=== PATIENT | male | born 1990 | race Caucasian/White ===

== ENCOUNTER 2023-04-14 21:34 | Inpatient (IN) | payer OTHER ==
[~2023-04-14] VITALS: Ht 172.7 cm; Wt 71.1 kg
[2023-04-14 23:16] LABS: GLUCOMETER DEV NAME(LOC) POC.BV; POC SARS-COV2 AG, FIA NEGATIVE (NEGATIVE)
[2023-04-14] MEDS ORDERED: VALA500T34 PO (23:33)
[2023-04-14] MEDS ORDERED: OLAN10TA74 PO (23:33)
[2023-04-14] MEDS ORDERED: LAMO200T10 PO (23:33)
[2023-04-14] MEDS ORDERED: BUPR-49 PO (23:33)
[2023-04-14] MEDS ORDERED: OLAN2.5T29 PO (23:33)
[2023-04-14] MEDS ORDERED: AMAN100T PO (23:33)
[2023-04-14] MEDS ORDERED: OLANZapine 5 MG RAPDIS TABLET PO PRN (23:45)
[2023-04-14] MEDS ORDERED: ZOLPIDEM TARTRATE 10 MG TABLET PO PRN (23:45)
[2023-04-15 00:34] VITALS: BP 118/59; PULSE 76; RESP 18; TEMP 97.3
[2023-04-15] MEDS ORDERED: ACETAMINOPHEN 325 MG TABLET PO PRN (06:00)
[2023-04-15] MEDS ORDERED: BACITRACIN 28 GM OINTMENT TP PRN (06:00)
[2023-04-15] MEDS ORDERED: IBUPROFEN 600 MG TABLET PO PRN (06:00)
[2023-04-15] MEDS ORDERED: LOPERAMIDE HCL 2 MG CAPSULE PO PRN (06:00)
[2023-04-15] MEDS ORDERED: MAGNESIUM HYDROXIDE SUSPENSION 30 ML UDCUP PO PRN (06:00)
[2023-04-15] MEDS ORDERED: ONDANSETRON HCL 4 MG TABLET PO PRN (06:00)
[2023-04-15] MEDS ORDERED: BENZOCAINE/MENTHOL LOZENGE PO PRN (06:00)
[2023-04-15] MEDS ORDERED: OMEPRAZOLE 20 MG CAPSULE PO PRN (06:00)
[2023-04-15] MEDS ORDERED: CloNIDine HCL 0.1 MG TABLET PO PRN (06:00)
[2023-04-15] MEDS ORDERED: MAG HYDROX/ALUMINUM HYD/SIMETH ES 30 ML SUSPENSION UDCUP PO PRN (06:00)
[2023-04-15] MEDS ORDERED: PETROLATUM,WHITE 28 GM JELLY TP PRN (06:00)
[2023-04-15] MEDS ORDERED: ALBUTEROL SULFATE HFA 90 MCG/PUFF 8 GM INHALER IH PRN (06:00)
[2023-04-15] MEDS ORDERED: DOCUSATE SODIUM 100 MG CAPSULE PO PRN (06:00)
[2023-04-15 08:13] VITALS: BP 103/57; PULSE 80; RESP 18; TEMP 98.5; O2SAT 95
[2023-04-15 08:29] LABS: BASOPHILS % (AUTO) 0.8 % (0.0-2.0); EOSINOPHILS % (AUTO) 4.4 % (1.0-6.0); HEMATOCRIT 40.4 % (41-53); HEMOGLOBIN 13.8 g/dL (13.5-17.5); LYMPHOCYTES # (AUTO) 1.7 K/uL (1.0-4.8); LYMPHOCYTES % (AUTO) 24.2 % (22.0-44.0); MEAN CORPUSCULAR HEMOGLOBIN 32.9 pg (26.0-34.0); MEAN CORPUSCULAR HGB CONC 34.2 G/dL (31.0-37.0); MEAN CORPUSCULAR VOLUME 96 fL (80-100); MONOCYTES # (AUTO) 0.6 K/uL (0.1-1.0); NEUTROPHILS # (AUTO) 4.3 K/uL (1.8-7.7); NEUTROPHILS % (AUTO) 61.6 % (40.0-70.0); PLATELET COUNT (AUTO) 268 K/uL (150-450); RED CELL DISTRIBUTION WIDTH 13.5 % (11.5-14.5)
[2023-04-15 08:44] LABS: HEMOGLOBIN A1C 5.2 % (3.8-5.6)
[2023-04-15 09:15] LABS: ALANINE AMINOTRANSFERASE 30 U/L (12-78); ALBUMIN 4.1 g/dL (3.4-5.0); ALKALINE PHOSPHATASE 59 U/L (46-116); ANION GAP 9 mmol/L (8-16); ASPARTATE AMINOTRANSFERASE 27 U/L (15-37); BILIRUBIN,TOTAL 0.4 mg/dL (0.1-1.0); CALCIUM, TOTAL 8.5 mg/dL (8.8-10.5); CARBON DIOXIDE 28 mmol/L (22-29); CHLORIDE 100 mmol/L (98-107); CHOL/HDL RATIO 2.3 (4.2-7.3); CHOLESTEROL 157 mg/dL (131-200); CREATININE 0.74 mg/dL (0.60-1.30); GLOMERULAR FILTR. RATE CALC > 60 mL/min (>60); GLUCOSE,RANDOM 119 mg/dL (70-110); HDL CHOLESTEROL 69 mg/dL (40-60); LDL CHOL (CALC.) 79 mg/dL (0-130); POTASSIUM 4.1 mmol/L (3.5-5.1); SODIUM SERUM 137 mmol/L (136-145); TOTAL PROTEIN, SERUM 6.9 g/dL (6.4-8.2); TRIGLYCERIDES 46 mg/dL (15-150); UREA NITROGEN, BLOOD 16 mg/dL (7-18)
[2023-04-15] MEDS: LORazepam 2 MG TABLET PO PRN (10:54)
[2023-04-15] MEDS: NICOTINE POLACRILEX 4 MG LOZENGE PO PRN (10:54)
[2023-04-15 13:38] VITALS: BP 103/57; PULSE 80; RESP 18; TEMP 98.5
[2023-04-15 20:07] VITALS: BP 128/70; PULSE 90; RESP 18; TEMP 97.9
[2023-04-15 20:09] VITALS: BP 128/70; PULSE 90; RESP 18; TEMP 97.9; O2SAT 98
[2023-04-16 08:35] LABS: APPEARANCE,URINE HAZY (CLEAR); BILIRUBIN,URINE NEGATIVE (NEGATIVE); COLOR,URINE YELLOW (YELLOW); GLUCOSE, URINE (UA) NEGATIVE (NEGATIVE); KETONES,URINE NEGATIVE (NEGATIVE); LEUKOCYTE ESTERASE ,URINE NEGATIVE (NEGATIVE); NITRATE,URINE NEGATIVE (NEGATIVE); OCCULT BLOOD,URINE NEGATIVE (NEGATIVE); PROTEIN,URINE TRACE mg/dL (NEGATIVE); SPECIFIC GRAVITIY, URINE 1.028 (1.003-1.030)
[2023-04-16 08:42] LABS: ALCOHOL, URINE DRUG SCREEN NEGATIVE (NEGATIVE); AMPHET/METH SCREEN,URINE NEGATIVE (NEGATIVE); BARBITURATE SCREEN, URINE NEGATIVE (NEGATIVE); BENZODIAZEPINES SCREEN,URINE NEGATIVE (NEGATIVE); CANNABINOID SCREEN,URINE POSITIVE (NEGATIVE); COCAINE SCREEN,URINE NEGATIVE (NEGATIVE); METHADONE SCREEN, URINE NEGATIVE (NEGATIVE); OPIATE SCREEN,URINE NEGATIVE (NEGATIVE); PHENCYCLIDINE SCREEN,URINE NEGATIVE (NEGATIVE)
[2023-04-16] MEDS: NICOTINE POLACRILEX 4 MG LOZENGE PO PRN ×2 (10:30→16:40)
[2023-04-16] MEDS: LORazepam 2 MG TABLET PO PRN (13:39)
[2023-04-16 13:53] VITALS: BP 119/75; PULSE 75; RESP 18; TEMP 98.4; O2SAT 98
[2023-04-16] MEDS ORDERED: FINA1TAB17 PO (15:50)
[2023-04-16] MEDS: DIVALPROEX SODIUM 500 MG DR TABLET PO SCH (16:40)
[2023-04-16] MEDS: LITHIUM CARBONATE 300 MG ER TABLET PO SCH (16:59)
[2023-04-16] MEDS ORDERED: OLANZapine 7.5 MG TABLET PO SCH (21:00)
[2023-04-17 06:47] VITALS: BP 132/89; PULSE 71; RESP 18; TEMP 97.4; O2SAT 100
[2023-04-17] MEDS: LORazepam 2 MG TABLET PO PRN ×3 (06:48→09:01)
[2023-04-17] MEDS: DIVALPROEX SODIUM 500 MG DR TABLET PO SCH ×2 (08:42→16:16)
[2023-04-17] MEDS: LITHIUM CARBONATE 300 MG ER TABLET PO SCH ×2 (08:45→16:16)
[2023-04-17] MEDS: NICOTINE POLACRILEX 4 MG LOZENGE PO PRN ×2 (08:46→14:24)
[2023-04-17 08:58] VITALS: BP 126/92; PULSE 72; RESP 17; TEMP 98; O2SAT 99
[2023-04-17] MEDS ORDERED: LITH300C3 PO (15:42)
[2023-04-17] MEDS ORDERED: DIVA-112 PO (15:42)
[2023-04-17] MEDS ORDERED: OLAN7.5T22 PO (15:43)
== END 2023-04-17 18:58 | disposition home or self-care (01) | DRG 885 ==
LOC: B3A 21:45 → B2S 04-16 21:25
PROVIDERS: ADMIT Psychiatry & Neurology Psychiatry; ATTEND Psychiatry & Neurology Psychiatry
DX: F31.9 Bipolar disorder, unspecified (principal); R45.851 Suicidal ideations; F20.9 Schizophrenia, unspecified; K59.00 Constipation, unspecified; G47.00 Insomnia, unspecified; F41.9 Anxiety disorder, unspecified; Z72.0 Tobacco use; Z20.822 Contact with and (suspected) exposure to COVID-19
CPT/HCPCS: 80053; 80061; 80307; 81003; 83036; 84439; 84443; 85025; Q9967

== ENCOUNTER 2023-04-16 20:26 | Emergency (ER) | payer OTHER ==
[~2023-04-16] VITALS: Ht 172.7 cm; Wt 70.5 kg
[~2023-04-16 20:26] MED LIST: AMAN100T PO; BUPR-49 PO; FINA1TAB17 PO; LAMO200T10 PO; OLAN10TA74 PO; OLAN2.5T29 PO; VALA500T34 PO
[2023-04-16 20:32] VITALS: TEMP 98.3
[2023-04-16 23:48] LABS: BASOPHILS % (AUTO) 1.3 % (0.0-2.0); EOSINOPHILS % (AUTO) 3.9 % (1.0-6.0); HEMATOCRIT 40.7 % (41-53); HEMOGLOBIN 13.7 g/dL (13.5-17.5); LYMPHOCYTES # (AUTO) 2.4 K/uL (1.0-4.8); LYMPHOCYTES % (AUTO) 36.1 % (22.0-44.0); MEAN CORPUSCULAR HEMOGLOBIN 32.4 pg (26.0-34.0); MEAN CORPUSCULAR HGB CONC 33.6 G/dL (31.0-37.0); MEAN CORPUSCULAR VOLUME 96 fL (80-100); MONOCYTES # (AUTO) 0.5 K/uL (0.1-1.0); MONOCYTES % (AUTO) 8.3 % (2.0-9.0); NEUTROPHILS # (AUTO) 3.4 K/uL (1.8-7.7); NEUTROPHILS % (AUTO) 50.4 % (40.0-70.0); PLATELET COUNT (AUTO) 240 K/uL (150-450); RED BLOOD CELL COUNT(AUTO) 4.22 MIL/uL (4.50-5.90); RED CELL DISTRIBUTION WIDTH 13.3 % (11.5-14.5); WHITE BLOOD COUNT (AUTO) 6.6 K/uL (4.5-11.0)
[2023-04-16 23:58] LABS: ANION GAP 7 mmol/L (8-16); CALCIUM, TOTAL 9.2 mg/dL (8.8-10.5); CARBON DIOXIDE 31 mmol/L (22-29); CHLORIDE 103 mmol/L (98-107); CREATININE 0.72 mg/dL (0.60-1.30); GLOMERULAR FILTR. RATE CALC > 60 mL/min (>60); GLUCOSE,RANDOM 95 mg/dL (70-110); POTASSIUM 4.5 mmol/L (3.5-5.1); SODIUM SERUM 141 mmol/L (136-145); UREA NITROGEN, BLOOD 12 mg/dL (7-18)
[2023-04-17] VITALS: BP 134/74; PULSE 71; RESP 17
[2023-04-17 00:05] LABS: ALANINE AMINOTRANSFERASE 91 U/L (12-78); ALKALINE PHOSPHATASE 55 U/L (46-116); ASPARTATE AMINOTRANSFERASE 74 U/L (15-37); BILIRUBIN,TOTAL 0.3 mg/dL (0.1-1.0); TOTAL PROTEIN, SERUM 6.8 g/dL (6.4-8.2)
[2023-04-17 00:12] LABS: ALCOHOL, BLOOD (SERUM) < 3 mg/dL (0-10)
[2023-04-17 00:26] LABS: ALCOHOL, URINE DRUG SCREEN NEGATIVE (NEGATIVE); AMPHET/METH SCREEN,URINE NEGATIVE (NEGATIVE); BARBITURATE SCREEN, URINE NEGATIVE (NEGATIVE); BENZODIAZEPINES SCREEN,URINE NEGATIVE (NEGATIVE); CANNABINOID SCREEN,URINE POSITIVE (NEGATIVE); COCAINE SCREEN,URINE NEGATIVE (NEGATIVE); METHADONE SCREEN, URINE NEGATIVE (NEGATIVE); OPIATE SCREEN,URINE NEGATIVE (NEGATIVE); PHENCYCLIDINE SCREEN,URINE NEGATIVE (NEGATIVE)
[2023-04-17] MEDS ORDERED: LORazepam 2 MG TABLET PO ONE (04:45)
[2023-04-17] MEDS ORDERED: DIVA-112 PO (15:42)
[2023-04-17] MEDS ORDERED: LITH300C3 PO (15:42)
[2023-04-17] MEDS ORDERED: OLAN7.5T22 PO (15:43)
== END 2023-04-17 06:30 ==
LOC: EMS 20:29
DX: S09.90XA Unspecified injury of head, initial encounter (principal); F41.9 Anxiety disorder, unspecified; F31.9 Bipolar disorder, unspecified; F14.90 Cocaine use, unspecified, uncomplicated; F12.90 Cannabis use, unspecified, uncomplicated; F15.90 Other stimulant use, unspecified, uncomplicated; F10.90 Alcohol use, unspecified, uncomplicated; Y90.9 Presence of alcohol in blood, level not specified; Y08.89XA Assault by other specified means, initial encounter; Y93.89 Activity, other specified; Y92.89 Other specified places as the place of occurrence of the external cause; Y99.8 Other external cause status
CPT/HCPCS: 99285; 80053; 85025; 36415; 80307; 70450; 72125; G0480